=== PATIENT | female | born 1965 | race Caucasian/White ===

== ENCOUNTER 2017-03-13 19:31 | Emergency (ER) | payer SELFPAY ==
[~2017-03-13] VITALS: Ht 170.2 cm; Wt 49.9 kg
[~2017-03-13 19:31] MED LIST: FAMO-119 PO; LEVO500T2 PO; NAPR500T4 PO
[2017-03-13] MEDS ORDERED: ACETAMINOPHEN 500 MG TAB (TYLENOL) PO STA (20:50)
[2017-03-13] MEDS ORDERED: NS IV 1000 ML 1,000 ML IV ONE ×2 (20:50→22:09)
--- NOTE | 2017-03-13 20:50 | ED General ---
General Chief Complaint: Cough/Cold/Flu Symptoms Stated Complaint: COUGH;FEVER;RUNNY NOSE Nursing Triage Note: PT REPORTS VOMITING, NAUSEA, COUGH, COLD X 2 WEEKS. PT REPORTS SHE RECENTLY DEVELOPED A FEVER AND IS FEELING WORSE. Nursing Sepsis Screen: No Definite Risk Source of Information: Patient, Family Exam Limitations: No Limitations History of Present Illness Time Seen by Provider: 20:30 Allergies and Home Medications Allergies Coded Allergies: No Known Allergies (Verified Allergy, Unknown, 06/21/05) Home Medications Famotidine 20 Mg Tablet, 20 MG PO BID, #20 Prescribed by: TITO STEVENSON on 03/01/1555 Levofloxacin 500 Mg Tablet, 500 MG PO DAILY, #10 Prescribed by: TITO STEVENSON on 03/01/1555 Naproxen 500 Mg Tablet, 500 MG PO BID, #20 Prescribed by: TITO STEVENSON on 03/01/1555 Past Pqdosto-Pbjeeg-Xanrhg Hx Patient Social History Alcohol Use: Denies Use Recreational Drug Use: No Smoking Status: Current Everyday Smoker Recent Foreign Travel: No Contact w/Someone Who Travel: No Recent Infectious Disease Expo: No Physical Abuse: No Sexual Abuse: No Mistreated: No Fear: No Surgeries History of Surgeries: Yes (LAPAROSCOPY W/ SALPINGECTOMY,TEETH PULLED,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) Surgeries: Abdominal, Eye Surgery Respiratory History of Respiratory Disorde: No Cardiovascular History of Cardiac Disorders: No Neurological History of Neurological Disord: No Reproductive System Hx Reproductive Disorders: No Sexually Transmitted Disease: No Female Reproductive Disorders: Denies DIVISION SERGEANT History: Menopausal Gastrointestinal History of Gastrointestinal Di: No Musculoskeletal History of Musculoskeletal Dis: No Endocrine History of Endocrine Disorders: No Cancer History of Cancer: No Psychosocial History of Psychiatric Problem: No Suicide Risk Score: 0 Integumentary History of Skin or Integumenta: No Blood Transfusions History of Blood Disorders: No Physical Exam Vital Signs Vital Sign - Last 12Hours 03/13/17 19:51 Temp 99.1 Pulse 88 Resp 20 B/P (MAP) 97/64 (75) Pulse Ox 95 O2 Delivery Room Air Capillary Refill : Less Than 3 Seconds Progress/Results/Core Measures Suspected Sepsis Recent Fever Within 48 Hours: Yes Infection Criteria Present: Suspected New Infection New/Unexplained Altered Menta: No Sepsis Screen: No Definite Risk Sepsis Diagnosis: SIRS Temperature:99.1 Pulse: 88 Respiratory Rate: 20 Laboratory Tests 03/13/17 19:44: White Blood Count 9.8 Blood Pressure 97 /64 Mean: 75 Laboratory Tests 03/13/17 19:44: Creatinine 0.63, Platelet Count 402H, Total Bilirubin 0.4 Results/Orders Lab Results Laboratory Tests Test 03/13/17 19:44 03/13/17 21:47 Range/Units White Blood Count 9.8 4.3-11.0 10^3/uL Red Blood Count 4.00 L 4.35-5.85 10^6/uL Hemoglobin 12.6 11.5-16.0 G/DL Hematocrit 36 35-52 % Mean Corpuscular Volume 91 80-99 FL Mean Corpuscular Hemoglobin 32 25-34 PG Mean Corpuscular Hemoglobin Concent 35 32-36 G/DL Red Cell Distribution Width 12.1 10.0-14.5 % Platelet Count 402 H 130-400 10^3/uL Mean Platelet Volume 9.1 7.4-10.4 FL Neutrophils (%) (Auto) 68 42-75 % Lymphocytes (%) (Auto) 17 12-44 % Monocytes (%) (Auto) 14 H 0-12 % Eosinophils (%) (Auto) 2 0-10 % Basophils (%) (Auto) 0 0-10 % Neutrophils # (Auto) 6.7 1.8-7.8 X 10^3 Lymphocytes # (Auto) 1.6 1.0-4.0 X 10^3 Monocytes # (Auto) 1.4 H 0.0-1.0 X 10^3 Eosinophils # (Auto) 0.2 0.0-0.3 10^3/uL Basophils # (Auto) 0.0 0.0-0.1 10^3/uL Sodium Level 137 135-145 MMOL/L Potassium Level 3.9 3.6-5.0 MMOL/L Chloride Level 104 98-107 MMOL/L Carbon Dioxide Level 22 21-32 MMOL/L Anion Gap 11 5-14 MMOL/L Blood Urea Nitrogen 8 7-18 MG/DL Creatinine 0.63 0.60-1.30 MG/DL Estimat Glomerular Filtration Rate > 60 BUN/Creatinine Ratio 13 Glucose Level 127 H 70-105 MG/DL Calcium Level 8.6 8.5-10.1 MG/DL Total Bilirubin 0.4 0.1-1.0 MG/DL Aspartate Amino Transf (AST/SGOT) 15 5-34 U/L Alanine Aminotransferase (ALT/SGPT) 11 0-55 U/L Alkaline Phosphatase 57 40-136 U/L C-Reactive Protein High Sensitivity 2.23 H 0.00-0.50 MG/DL Total Protein 6.4 6.4-8.2 GM/DL Albumin 3.3 3.2-4.5 GM/DL Lipase 19 8-78 U/L Urine Color YELLOW Urine Clarity CLEAR Urine pH 8 5-9 Urine Specific [place] 1.010 L 1.016-1.022 Urine Protein NEGATIVE NEGATIVE Urine Glucose (UA) NEGATIVE NEGATIVE Urine Ketones NEGATIVE NEGATIVE Urine Nitrite NEGATIVE NEGATIVE Urine Bilirubin NEGATIVE NEGATIVE Urine Urobilinogen 1 NORMAL MG/DL Urine Leukocyte Esterase 3+ H NEGATIVE Urine RBC (Auto) 2+ H NEGATIVE Urine RBC 5-10 H /HPF Urine WBC 10-25 H /HPF Urine Squamous Epithelial Cells 2-5 /HPF Urine Crystals NONE /LPF Urine Bacteria TRACE /HPF Urine Casts NONE /LPF Urine Mucus NEGATIVE /LPF Urine Culture Indicated YES Micro Results Microbiology 03/13/17 Influenza Types A,B Antigen (DIONNA) - Final, Complete My Orders Orders - MARLY VILLAR Cbc With Automated Diff (03/13/17 20:50) Comprehensive Metabolic Panel (03/13/17 20:50) Hs C Reactive Protein (03/13/17 20:50) Lipase (03/13/17 20:50) Ua Culture If Indicated (03/13/17 20:50) Saline Lock/Iv-Start (03/13/17 20:50) Ondansetron Injection (Zofran Injectio (03/13/17 21:00) Chest Pa/Lat (2 View) (03/13/17 20:50) Ns Iv 1000 Ml (Sodium Chloride 0.9%) (03/13/17 20:50) Acetaminophen Tablet (Tylenol Tablet) (03/13/17 20:50) Albuterol/Ipra Inhalation Soln (Duoneb I (03/13/17 21:00) Svn Sm Volume Nebulizer Rt-Rfs (03/13/17 20:50) Ceftriaxone Injection (Rocephin Injectio (03/13/17 21:45) Urine Culture (03/13/17 21:47) Ns Iv 1000 Ml (Sodium Chloride 0.9%) (03/13/17 22:09) Medications Given in ED Current Medications Medications Dose Ordered Sig/Tran Route Start Time Stop Time Status Last Admin Dose Admin Albuterol/ Ipratropium 3 ml ONCE ONCE INH 03/13/17 21:00 03/13/17 21:01 DC 03/13/17 21:58 3 ML Ceftriaxone Sodium 1000 mg/ Sodium Chloride 50 ml @ 100 mls/hr ONCE ONCE IV 03/13/17 21:45 03/13/17 22:14 DC 03/13/17 21:45 100 MLS/HR Ondansetron HCl 4 mg ONCE ONCE IVP 03/13/17 21:00 03/13/17 21:01 DC 03/13/17 21:41 4 MG Sodium Chloride 1,000 ml @ 0 mls/hr Q0M ONCE IV 03/13/17 20:50 03/13/17 20:54 DC 03/13/17 21:41 0 MLS/HR Vital Signs/I&O Vital Sign - Last 12Hours 03/13/17 03/13/17 03/13/17 19:51 19:51 21:55 Temp 99.1 Pulse 88 Resp 20 B/P (MAP) 97/64 (75) Pulse Ox 95 98 O2 Delivery Room Air Room Air Capillary Refill : Less Than 3 Seconds Blood Pressure Mean: 75 Departure Impression Impression: Primary Impression: Influenza-like symptoms Additional Impression: Pneumonia Disposition: 01 HOME, SELF-CARE Condition: Improved Departure-Patient Inst. Decision time for Depature: 23:20 Referrals: NO,LOCAL PHYSICIAN (PCP) Primary Care Physician Patient Instructions: Pneumonia, Adult (DC), Flu, Adult (DC) Add. Discharge Instructions: All discharge instructions reviewed with patient and/or family. Voiced understanding. Medications as instructed. Albuterol inhaler 2 puffs every 4 hours as needed for shortness of air or wheezing. Gcoz-keh-baiahpq decongestants and antihistamines as instructed by the ict support engineer. Follow-up with the primary care provider of your choice establish care and for recheck this week. Call for appointment time tomorrow morning. Return to the emergency department for worsened symptoms, fever, shortness of air, chest pain , or any other concerns. Scripts Prednisone (Prednisone) 20 Mg Tab 40 MG PO DAILY, #10 TAB 0 Refills Prov: MARLY VILLAR 03/13/17 Minocycline HCl (Minocycline HCl) 100 Mg Capsule 100 MG PO BID, #14 CAP 0 Refills Prov: MARLY VILLAR 03/13/17 Oseltamivir Phosphate (Tamiflu) 75 Mg Cap 75 MG PO BID, #14 CAP 0 Refills Prov: MARLY VILLAR 03/13/17 Work/School Note: Local [employer] Listing MARLY VILLAR Mar 13, 2017 20:50
[2017-03-13 21:00] LABS: BASOPHILS % (AUTO) 0 % (0-10); EOSINOPHILS # (AUTO) 0.2 10^3/uL (0.0-0.3); EOSINOPHILS % (AUTO) 2 % (0-10); HEMATOCRIT 36 % (35-52); HEMOGLOBIN 12.6 G/DL (11.5-16.0); LYMPHOCYTES # (AUTO) 1.6 X 10^3 (1.0-4.0); LYMPHOCYTES % (AUTO) 17 % (12-44); MEAN CORPUSCULAR HEMOGLOBIN 32 PG (25-34); MEAN CORPUSCULAR HGB CONC 35 G/DL (32-36); MEAN CORPUSCULAR VOLUME 91 FL (80-99); MEAN PLATELET VOLUME 9.1 FL (7.4-10.4); MONOCYTES # (AUTO) 1.4 X 10^3 (0.0-1.0); MONOCYTES % (AUTO) 14 % (0-12); NEUTROPHILS # (AUTO) 6.7 X 10^3 (1.8-7.8); NEUTROPHILS % (AUTO) 68 % (42-75); PLATELET COUNT 402 10^3/uL (130-400); RED CELL DISTRIBUTION WIDTH 12.1 % (10.0-14.5); WHITE BLOOD COUNT 9.8 10^3/uL (4.3-11.0)
[2017-03-13] MEDS ORDERED: ONDANSETRON 4 MG/2 ML (SDV) Z0FRAN IVP ONE (21:00)
[2017-03-13] MEDS ORDERED: RT-ALBUTEROL/IPRATROPIUM 3 ML (DUONEB) VIAL INH ONE (21:00)
[2017-03-13 21:13] LABS: ALANINE AMINOTRANSFERASE 11 U/L (0-55); ALBUMIN 3.3 GM/DL (3.2-4.5); ALKALINE PHOSPHATASE 57 U/L (40-136); BILIRUBIN,TOTAL 0.4 MG/DL (0.1-1.0); BUN/CREATININE RATIO 13; CALCIUM 8.6 MG/DL (8.5-10.1); CARBON DIOXIDE 22 MMOL/L (21-32); CHLORIDE 104 MMOL/L (98-107); CREATININE SERUM 0.63 MG/DL (0.60-1.30); GFR ESTIMATED > 60; GLUCOSE 127 MG/DL (70-105); LIPASE 19 U/L (8-78); POTASSIUM 3.9 MMOL/L (3.6-5.0); SODIUM 137 MMOL/L (135-145); TOTAL PROTEIN 6.4 GM/DL (6.4-8.2)
--- NOTE | 2017-03-13 21:22 | Diagnostic Imaging Report ---
INDICATION: Cough and congestion. Comparison is made with the prior study from 03/01/2015. FINDINGS: There are severe chronic interstitial changes present within the lungs. There appears to be pleural parenchymal scarring and distortion in both lung apices. There appear to be some patchy infiltrates at the left lung base projecting over the spine on the lateral view within the left lower lobe. There is no effusion. There is no pneumothorax. The heart size appears normal. IMPRESSION: 1. Advanced features of COPD with small region of alveolar opacity at the left lower lobe suggesting a small region of superimposed infiltrates. Dictated by: Dictated on workstation # [id number]
[2017-03-13] MEDS ORDERED: cefTRIAXone INJECTION 1,000 MG in NS (IVPB) 50 ML IV ONE (21:45)
[2017-03-13 21:56] LABS: BILIRUBIN,URINE NEGATIVE (NEGATIVE); CLARITY,URINE CLEAR; COLOR,URINE YELLOW; GLUCOSE, URINE (UA) NEGATIVE (NEGATIVE); KETONES,URINE NEGATIVE (NEGATIVE); LEUKOCYTE ESTERASE ,URINE 3+ (NEGATIVE); NITRITE,URINE NEGATIVE (NEGATIVE); PH,URINE 8 (5-9); PROTEIN,URINE NEGATIVE (NEGATIVE); UROBILINOGEN,URINE 1 MG/DL (NORMAL)
[2017-03-13 22:05] LABS: BACTERIA,URINE TRACE /HPF
[2017-03-13] MEDS ORDERED: MINO100C2 PO (23:22)
[2017-03-13] MEDS ORDERED: OSLT75C PO (23:22)
[2017-03-13] MEDS ORDERED: PRD20T PO (23:23)
[2017-03-13] MEDS ORDERED: RX-ALBUTEROL INHALER (PROAIR) 8 GM IH STA (23:24)
[2017-03-13 23:37] VITALS: BP 103/50
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
--- OUTSIDE RECORDS SUMMARY | 2017-03-14 19:24 | XMS REPORT ---
Author Author ELENA HAYWOOD Organization [employer] Address Unknown Phone Unavailable Care Team Providers Care Manager Business Information Name Role Phone ELENA HAYWOOD CP Unavailable Allergies No Known Allergies Problems Problem Type Condition Code Onset Dates Condition Status Problem Nondependent tobacco use disorder 305.1 Active Problem Unspecified hypotension 458.9 Active Problem Acute upper respiratory infections of unspecified site 465.9 Active Problem Counseling on substance use and abuse V65.42 Active Problem Lumbago 724.2 Active Problem Costochondritis 733.6 Active Medications No Known Medications Results No Known Results Summary Purpose [employer] Submission
== END 2017-03-13 23:37 | disposition home or self-care (01) ==
LOC: EDUNIT# 19:31 → ER 19:33
DX: J11.1 Influenza due to unidentified influenza virus with other respiratory manifestations (principal); J18.9 Pneumonia, unspecified organism; F17.200 Nicotine dependence, unspecified, uncomplicated
CPT/HCPCS: 36415; 71046; 80053; 81000; 83690; 85025; 86141; 87088; 87804; 94640; 96361; 96365; 96375

== ENCOUNTER → 2018-06-27 | Outpatient (CLI) | payer OTHER ==
[~2018-06-27] MED LIST changes: +METH-313 PO; +MINO100C2 PO; +NAPR-1071 PO; +NAPR-915 PO; -NAPR500T4 PO; +OSLT75C PO; +PRD20T PO; +RT-ALBUTEROL SULF 2.5 MG/3 ML PRE-MIX VIAL INH ONE
== END ==
LOC: RT 14:24
PROVIDERS: ATTEND Surgery
DX: Z02.71 Encounter for disability determination (principal)
CPT/HCPCS: 94060; 94729

== ENCOUNTER 2021-08-05 12:49 | Emergency (ER) | payer MEDICARE, MEDICAID ==
[~2021-08-05] VITALS: Ht 170 cm; Wt 41.0 kg
[~2021-08-05 12:49] MED LIST changes: -MINO100C2 PO; +MINO100C5 PO; -RT-ALBUTEROL SULF 2.5 MG/3 ML PRE-MIX VIAL INH ONE
[2021-08-05 12:57] VITALS: BP 129/68
[2021-08-05] MEDS ORDERED: AMOX1TAB12 PO (13:14)
--- NOTE | 2021-08-05 13:14 | ED EENT ---
History of Present Illness General Chief Complaint: Ear Problems Stated Complaint: LEFT EARACHE Source: patient Exam Limitations: no limitations History of Present Illness Date Seen by Provider: Aug 05, 2021 Time Seen by Provider: 13:10 Initial Comments Patient is a 56-year-old female presents to ED with left ear pain. Ear pain over the past 2 weeks. States she was seen at the clinic and was prescribed amoxicillin. Patient states she recently finished amoxicillin but still having ear pain. Has been using earwax removal to the left ear with some success. Denies of any hearing changes, hearing loss, ear ringing, fever. She states yesterday she used earwax removal drops and reports large amount of earwax removed. Denies fever, chills, headache, dizziness, ear drainage Allergies and Home Medications Allergies Coded Allergies: DOROTHYANo Known Allergies (Verified Allergy, Unknown, 06/21/05) Patient Home Medication List Home Medication List Reviewed: Yes Amoxicillin/Potassium Clav (Amox Tr-K Clv 875-125 mg Tab) 875 Mg-125 Mg Tablet, 1 EACH PO BID Prescribed by: SHAHZAD BURRELL on 08/05/21 1314 Famotidine (Pepcid) 20 Mg Tablet, 20 MG PO BID Prescribed by: TITO STEVENSON on 03/01/15 005 Levofloxacin (Levaquin) 500 Mg Tablet, 500 MG PO DAILY Prescribed by: TITO STEVENSON on 03/01/1555 Methocarbamol (Robaxin-750) 750 Mg Tablet, 750 MG PO Q4H PRN for PAIN-MODERATE TO SEVERE Prescribed by: MILLIE CARRANZA on 10/27/17 173 Minocycline HCl (Minocycline HCl) 100 Mg Capsule, 100 MG PO BID Prescribed by: MARLY VILLAR on 03/13/17 232 Naproxen (Naproxen) 500 Mg Tablet, 500 MG PO BID Prescribed by: TITO STEVENSON on 03/01/15 005 Naproxen (Naprosyn) 500 Mg Tablet, 500 MG PO BID Prescribed by: MILLIE CARRANZA on 10/27/17 173 Oseltamivir Phosphate (Tamiflu) 75 Mg Cap, 75 MG PO BID Prescribed by: MARLY VILLAR on 03/13/17 232 Prednisone (Prednisone) 20 Mg Tab, 40 MG PO DAILY Prescribed by: MARLY VILLAR on 1/10/18 2323 Review of Systems Review of Systems Constitutional: No chills, No diaphoresis, No malaise, No weakness Eyes: Denies Blindness, Denies Drainage, Denies Decreased Acuity, Denies Pain, Denies Photophobia Ears: Denies Dizziness; Pain; Denies Bloody Discharge, Denies Clear Discharge Nose: denies clots, denies congestion Mouth: denies clots, denies bloody discharge, denies clear discharge Throat: denies pain, denies swelling Respiratory: No cough, No dyspnea on exertion Musculoskeletal: No back pain, No joint pain Skin: No change in color, No change in hair/nails Past Sracsfi-Iifvxe-Lbiyxa Hx Past Medical History Surgeries: Yes (LAPAROSCOPY W/ SALPINGECTOMY,TEETH PULLED,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 oz. 47.584550nw; 14.06 BMI Method:Stated General Appearance: WD/WN, no apparent distress Eyes: bilateral eye normal inspection, bilateral eye PERRL, bilateral eye EOMI Ears: left ear erythema, left ear TM red Nose: normal inspection Mouth/Throat: normal mouth inspection, pharynx normal, dental tenderness, excessive drooling, foreign body Neck: non-tender, full range of motion, supple Cardiovascular: regular rate, rhythm, no edema, no gallop, no JVD Respiratory: chest non-tender, lungs clear, normal breath sounds, no respiratory distress, no accessory muscle use Gastrointestinal: normal bowel sounds, non tender, soft, no organomegaly Neurologic/Psychiatric: gis software developer II-XII nml as tested, no motor/sensory deficits, alert, normal mood/affect, oriented x 3 Skin: normal color Progress/Results/Core Measures Results/Orders Vital Signs/I&O 08/05/21 12:57 Temp 36.4 Pulse 69 Resp 20 B/P (MAP) 129/68 (88) Pulse Ox 97 Departure Communication (PCP) Concerning for left otitis media. cerumen noted. Use of a curette to successfully remove half of the cerumen. Visualization of the left TM did note purulent drainage, erythema. Discharged with Augmentin. Recommend ENT outpatient follow-up if symptoms continue. Avoid any foreign bodies. Avoid any substance to cause irritation at this time. Return precaution were discussed. No hearing loss, ear ringing Impression Primary Impression: Otitis media Additional Impression: Excessive cerumen in ear canal Disposition: HOME, SELF-CARE Condition: Stable Departure-Patient Inst. Decision time for Depature: 13:13 Referrals: [facility] (PCP/Family) Primary Care Physician Patient Instructions: Ear Infection ED, Ear Wax Impaction (DC) Scripts Amoxicillin/Potassium Clav (Amox Tr-K Clv 875-125 mg Tab) 875 Mg-125 Mg Tablet 1 EACH PO BID for 10 Days, #20 TAB Prov: OREN CHARLES 08/05/21 OREN CHARLES Aug 05, 2021 13:14
== END 2021-08-05 13:23 | disposition home or self-care (01) ==
LOC: EDUNIT# 12:49 → ER 12:53
DX: H61.22 Impacted cerumen, left ear (principal); H66.92 Otitis media, unspecified, left ear
CPT/HCPCS: 99282